=== PATIENT | male | born 1955 | race Caucasian/White ===

== ENCOUNTER 2016-10-23 06:01 | Day surgery (SDC) | payer BC ==
[~2016-10-23 06:01] MED LIST: Dextrose 5%-0.45% NaCl 1,000 ML IV SCH; Sodium Chloride 0.9% 10 ML Syringe FLUSH PRN
[2016-10-23] MEDS ORDERED: Midazolam 1 MG/ML 2 ML SDV ONE (06:11)
[2016-10-23] MEDS ORDERED: fentaNYL 100 MCG/2 ML SDV ONE (06:12)
[2016-10-23] MEDS ORDERED: fentaNYL 100 MCG/2 ML SDV IV ONE ×3 (06:50→15:38)
[2016-10-23] MEDS ORDERED: Midazolam 1 MG/ML 2 ML SDV IV ONE ×5 (06:51→15:38)
--- NOTE | 2016-10-23 10:27 | OR ---
DATE: 10/23/2016 PROCEDURE: Limited colonoscopy, narrow-band imaging, with magnification views and multiple pinch biopsies. INSTRUMENT USED: PCF-H180 AL Olympus video colonoscope. PREMEDICATIONS: Fentanyl 100 mcg intravenous, Versed 3 mg intravenous, nasal 2 L O2 cannula. The procedure was done under pulse oximetry, BP recording, and security monitor. INDICATION: The patient with recent progressive alteration in bowel habits, lower abdominal pain, as well as iron deficiency anemia. CT study suggestive of metastatic liver disease. Colonoscopic examination is done for detection of any polypoid lesions and removal. Endoscopic hemostasis therapy if needed. DESCRIPTION OF PROCEDURE: Initial rectal exam was unremarkable. Rigid anoscopy was normal. The colonoscope was passed with ease up to around 12 cm proximal to the anal verge, where a large circumferential malignant lesion was noted. NBI and magnification views were obtained. Photographs were taken. Numerous pinch biopsies were taken and sent for histopathology. Due to the stricture related to the large tumor, proximal areas could not be visualized. The tip of the scope could not be passed through. No vascular ectasia. No large isolated ulcerations seen. No evidence of diffuse inflammatory bowel disease in the form of friability, contact bleeding, or ulcerations. No bleeding was noted from any of the visualized areas at the completion of examination. IMPRESSION: Sigmoid colonic malignancy. The patient tolerated the procedure well. [facility] /[id number]
== END 2016-10-23 09:11 | disposition home or self-care (01) ==
LOC: DL.ENDO 06:01
PROVIDERS: ATTEND Internal Medicine Gastroenterology
DX: C18.7 Malignant neoplasm of sigmoid colon (principal); F17.210 Nicotine dependence, cigarettes, uncomplicated
CPT/HCPCS: 45380; J2250; J3010; J7042

== ENCOUNTER 2017-02-17 14:46 | Observation (INO) | payer BC ==
[2017-02-17] MEDS: Sodium Chloride 0.9% 10 ML Syringe FLUSH PRN ×2 (15:11→21:29)
--- NOTE | 2017-02-17 15:13 | EDM.PDOC ---
ED HPI GENERAL MEDICAL PROBLEM - General Chief Complaint: General Stated Complaint: [id number] FLUID IN LEGS AND FEET Time Seen by Provider: 02/17/17 15:05 Source of Information: Reports: Patient, RN, RN Notes Reviewed History Limitations: Reports: No Limitations - History of Present Illness INITIAL COMMENTS - FREE TEXT/NARRATIVE: Pt presents to the ER with c/o swelling in the legs and increased sob. He states he was diagnosed in October with colon cancer and has been taking treatments. He states he noticed the swelling in the legs on , but the sob has progressively gotten worse. Patient states he has been jaundiced "for a while". Onset: Gradual Location: Reports: Chest, Abdomen - Related Data Allergies Allergy/AdvReac Type Severity Reaction Status Date / Time No Known Allergies Allergy Verified 02/17/17 14:53 Home Meds: Home Meds Ibuprofen 2 tab PO Q6H PRN 10/22/16 [History] Capecitabine [Capecitabine] 1,800 mg PO ASDIRECTED 02/17/17 [History] Docusate Sodium [Colace] 100 mg PO DAILY PRN 02/17/17 [History] Loperamide HCl [Imodium A-D] 2 mg PO ASDIRECTED PRN 02/17/17 [History] Magnesium Oxide 400 mg PO BID 02/17/17 [History] Ondansetron HCl [Zofran] 8 mg PO ASDIRECTED PRN 02/17/17 [History] Prochlorperazine [Compazine] 10 mg PO ASDIRECTED PRN 02/17/17 [History] Zolpidem Tartrate [Zolpidem Tartrate] 10 mg PO BEDTIME 02/17/17 [History] Past Medical History HEENT History: Reports: None Cardiovascular History: Reports: None Respiratory History: Reports: None Gastrointestinal History: Reports: Chronic Constipation, Chronic Diarrhea, Other (See Below) Other Gastrointestinal History: lower abd pain Genitourinary History: Reports: None Musculoskeletal History: Reports: None Neurological History: Reports: None Psychiatric History: Reports: None Endocrine/Metabolic History: Reports: None Hematologic History: Reports: None Immunologic History: Reports: None Oncologic (Cancer) History: Reports: None Dermatologic History: Reports: None - Infectious Disease History Infectious Disease History: Reports: Other (See Below) Other Infectious Disease History: unknown - Past Surgical History Head Surgeries/Procedures: Reports: None HEENT Surgical History: Reports: None Cardiovascular Surgical History: Reports: None GI Surgical History: Reports: None Social & Family History - Family History Family Medical History: Noncontributory - Tobacco Use Smoking Status *Q: Never Smoker Years of Tobacco use: 25 Second Hand Smoke Exposure: Yes - Caffeine Use Caffeine Use: Reports: Coffee Caffeine Use Comment: 3-4 cups daily - Alcohol Use Days Per Week of Alcohol Use: 1 Number of Drinks Per Day: 4 Total Drinks Per Week: 4 - Recreational Drug Use Recreational Drug Use: No ED ROS GENERAL - Review of Systems Review Of Systems: ROS reveals no pertinent complaints other than HPI. ED EXAM, GENERAL - Physical Exam Exam: See Below Exam Limited By: No Limitations General Appearance: Alert, WD/WN, Mild Distress Eye Exam: Bilateral Eye: EOMI, Other (Scleral icterus) Ears: Normal External Exam, Hearing Grossly Normal Nose: Normal Inspection Throat/Mouth: Normal Inspection, Normal Voice, No Airway Compromise Head: Atraumatic, Normocephalic Neck: Normal Inspection Respiratory/Chest: Respiratory Distress, Decreased Breath Sounds Cardiovascular: Normal Peripheral Pulses, No JVD, Systolic Murmur, Gallop/S3. No: No Edema Peripheral Pulses: 1+: Dorsalis Pedis (L), Dorsalis Pedis (R), 2+: Radial (L), Radial (R) GI/Abdominal: Distended, Abnormal Bowel Sounds (hypoactive), Other (colostomy) (Male) Exam: Deferred Rectal (Males) Exam: Deferred Back Exam: Normal Inspection, Full Range of Motion Extremities: Normal Capillary Refill, Pedal Edema, Limited Range of Motion Neurological: Alert, Oriented, Normal Cognition, No Motor/Sensory Deficits Psychiatric: Normal Mood, Flat Affect Skin Exam: Warm, Dry, Intact, No Rash, Jaundice Lymphatic: No Adenopathy EKG INTERPRETATION EKG Date: 02/17/17 Time: 15:17 Rhythm: Other (sinus tach) Rate (Beats/Min): 102 [place]: RAD-Right [place] Deviation P-Wave: Present QRS: Normal ST-T: Normal QT: Normal Comparison: NA - No Prior EKG EKG Interpretation Comments: Sinus tach with right axis deviation, borderline inferior Q wave. Course - Vital Signs Last Recorded V/S: Last Vital Signs Temp 97.8 F 02/17/17 15:00 Pulse 98 02/17/17 16:14 Resp 24 H 02/17/17 16:14 BP 98/58 L 02/17/17 16:14 Pulse Ox 99 02/17/17 16:14 - Orders/Labs/Meds Orders: Active Orders 24 hr Category Date Time Status EKG Documentation Completion [RC] STAT Care 02/17/17 15:06 Active Peripheral IV Care [RC] . DIRECTED Care 02/17/17 15:04 Active Sodium Chloride 0.9% [Saline Flush] Med 02/17/17 15:03 Active 10 ml FLUSH ASDIRECTED PRN Peripheral IV Insertion Adult [OM.PC] Stat Oth 02/17/17 15:04 Ordered Medication Orders Sodium Chloride (Saline Flush) 10 ml FLUSH ASDIRECTED PRN PRN Reason: Keep Vein Open Last Admin: 02/17/17 15:11 Dose: 10 ml Labs: Laboratory Tests 02/17/17 02/17/17 02/17/17 Range/Units 15:09 15:09 15:09 WBC 8.9 (5.0-10.0) 10^3/uL RBC 3.51 L (4.6-6.2) 10^6/uL Hgb 10.5 L (14.0-18.0) g/dL Hct 30.5 L (40.0-54.0) % MCV 86.9 (80-100) fL MCH 29.9 (27.0-34.0) pg MCHC 34.4 (33.0-35.0) g/dL Plt Count 407 (150-450) 10^3/uL Neut % (Auto) 73.4 (42.2-75.2) % Lymph % (Auto) 13.8 L (20.5-50.1) % Bremer % (Auto) 12.4 H (2-8) % Eos % (Auto) 0.3 L (1.0-3.0) % Baso % (Auto) 0.1 (0.0-1.0) % Add Manual Diff Yes Neutrophils % (Manual) 80 H (42-75) % Band Neutrophils % 1 % Lymphocytes % (Manual) 13 L (20-50) % Monocytes % (Manual) 5 (2-8) % Eosinophils % (Manual) 1 (1-3) % Target Cells Few Sodium 134 L (135-145) mmol/L Potassium 4.5 (3.6-5.0) mmol/L Chloride 103 (101-111) mmol/L Carbon Dioxide 17.0 L (21.0-31.0) mmol/L Anion Gap 18.5 BUN 38 H (7-18) mg/dL Creatinine 1.5 H (0.6-1.3) mg/dL Est Cr Clr Drug Dosing 56.48 mL/min Estimated GFR (MDRD) 48 BUN/Creatinine Ratio 25.33 Glucose 119 H (74-105) mg/dL Calcium 9.2 (8.4-10.2) mg/dl Total Bilirubin 10.4 H (0.2-1.0) mg/dL AST 164 H (10-42) IU/L ALT 48 (10-60) IU/L Alkaline Phosphatase 281 H (42-121) IU/L Lactate Dehydrogenase 1020 H (91-180) IU/L B-Natriuretic Peptide 139 H (0-100) pg/ml Total Protein 7.1 (6.7-8.2) g/dl Albumin 2.4 L (3.2-5.5) g/dl Globulin 4.7 Albumin/Globulin Ratio 0.51 Meds: Medications Generic Name Dose Route Start Last Admin Trade Name Freq PRN Reason Stop Dose Admin Sodium Chloride 10 ml 02/17/17 15:03 02/17/17 15:11 Saline Flush FLUSH 10 ml ASDIRECTED PRN Administration Keep Vein Open Discontinued Medications Generic Name Dose Route Start Last Admin Trade Name Freq PRN Reason Stop Dose Admin Furosemide 40 mg 02/17/17 16:15 Lasix IVPUSH 02/17/17 16:16 NOW ONE - Radiology Interpretation Free Text/Narrative:: Chest xray: See rad report - Re-Assessments/Exams Free Text/Narrative Re-Assessment/Exam: 02/17/17 16:19 Patient accepted at by Dr. Barlow, but patient is unable to be transported due to weather. Discussed the case with Dr. Davila, and the patient will be admitted to the medical floor at [place], [place] until the patient can be transferred, if still necessary. Departure - Departure Time of Disposition: 16:21 Disposition: Admitted As Inpatient 68 Condition: Poor, Serious Clinical Impression: SOB (shortness of breath), Jaundice Ascites Qualifiers: Ascites type: malignant Qualified Code(s): R18.0 - Malignant ascites Hepatic cancer Qualifiers: Liver malignancy type: unspecified liver malignancy Qualified Code(s): C22.9 - Malignant neoplasm of liver, not specified as primary or secondary Colon cancer Qualifiers: Colon location: unspecified part of colon Qualified Code(s): C18.9 - Malignant neoplasm of colon, unspecified - Discharge Information Forms: ED Department Discharge - My Orders Last 24 Hours: My Active Orders 02/17/17 15:03 Sodium Chloride 0.9% [Saline Flush] 10 ml FLUSH ASDIRECTED PRN 02/17/17 15:04 Peripheral IV Care [RC] . DIRECTED Peripheral IV Insertion Adult [OM.PC] Stat 02/17/17 15:06 EKG Documentation Completion [RC] STAT - Assessment/Plan Last 24 Hours: My Active Orders 02/17/17 15:03 Sodium Chloride 0.9% [Saline Flush] 10 ml FLUSH ASDIRECTED PRN 02/17/17 15:04 Peripheral IV Care [RC] . DIRECTED Peripheral IV Insertion Adult [OM.PC] Stat 02/17/17 15:06 EKG Documentation Completion [RC] STAT
--- NOTE | 2017-02-17 16:07 | CR ---
Clinical history: 61-year-old male chest pain. Interpretation: No acute cardiopulmonary abnormality. Normal cardiac silhouette without cephalization of vascular flow, signs of alveolar edema or dependen t pleural effusion. No lung mass, hilar lymphadenopathy or focal lobar pneumonia. More thorax unremarkable. No atelectasis/collapse. No pneumothorax.
[2017-02-17] MEDS ORDERED: Furosemide 40 MG/4 ML VIAL IVPUSH ONE (16:15)
[2017-02-17] MEDS ORDERED: Zolpidem 5 MG Tab PO PRN (16:59)
[2017-02-17] MEDS ORDERED: Ondansetron 4 MG/2 ML SDV IVPUSH PRN (17:01)
[2017-02-17] MEDS ORDERED: Ibuprofen 400 MG Tab PO PRN (17:01)
[2017-02-17] MEDS ORDERED: Ondansetron 4 MG Tab.DIS PO PRN (17:01)
[2017-02-17] MEDS ORDERED: Sodium Chloride 0.9% 10 ML Syringe FLUSH PRN (17:01)
--- NOTE | 2017-02-17 17:27 | PCM.HP ---
H&P History of Present Illness - General Date of Service: 02/17/17 Admit Problem/Dx: Admission Diagnosis/Problem Admission Diagnosis/Problem Weakness Source of Information: Patient - History of Present Illness Initial Comments - Free Text/Narative: The patient is a 61-year-old gentleman with a colon adenocarcinoma with known liver metastases. The patient was treated with bowel resection, chemotherapy. He came to the emergency room with complaints of increasing lower extremity edema and enlarging abdomen, associated weakness. Shortness of breath is worse. He has more jaundiced than before. - Related Data Allergies/Adverse Reactions: Allergies Allergy/AdvReac Type Severity Reaction Status Date / Time No Known Allergies Allergy Verified 02/17/17 14:53 Home Medications: Home Meds Ibuprofen 2 tab PO Q6H PRN 10/22/16 [History] Capecitabine [Capecitabine] 1,800 mg PO ASDIRECTED 02/17/17 [History] Docusate Sodium [Colace] 100 mg PO DAILY PRN 02/17/17 [History] Loperamide HCl [Imodium A-D] 2 mg PO ASDIRECTED PRN 02/17/17 [History] Magnesium Oxide 400 mg PO BID 02/17/17 [History] Ondansetron HCl [Zofran] 8 mg PO ASDIRECTED PRN 02/17/17 [History] Prochlorperazine [Compazine] 10 mg PO ASDIRECTED PRN 02/17/17 [History] Zolpidem Tartrate [Zolpidem Tartrate] 10 mg PO BEDTIME 02/17/17 [History] Past Medical History HEENT History: Reports: None Cardiovascular History: Reports: None Respiratory History: Reports: None Gastrointestinal History: Reports: Chronic Constipation, Chronic Diarrhea, Other (See Below) Other Gastrointestinal History: lower abd pain Genitourinary History: Reports: None Other Genitourinary History: erectile dysfunction Musculoskeletal History: Reports: None Neurological History: Reports: None Psychiatric History: Reports: None Endocrine/Metabolic History: Reports: None Hematologic History: Reports: None Immunologic History: Reports: None Oncologic (Cancer) History: Reports: Colon, Liver Dermatologic History: Reports: None - Infectious Disease History Infectious Disease History: Reports: Other (See Below) Other Infectious Disease History: unknown - Past Surgical History Head Surgeries/Procedures: Reports: None HEENT Surgical History: Reports: None Cardiovascular Surgical History: Reports: None GI Surgical History: Reports: None Social & Family History - Family History Family Medical History: Noncontributory - Tobacco Use Smoking Status *Q: Former Smoker Years of Tobacco use: 3 Packs/Tins Daily: 0.5 Used Tobacco, but Quit: Yes Month Tobacco Last Used: september Second Hand Smoke Exposure: Yes - Caffeine Use Caffeine Use: Reports: Coffee Caffeine Use Comment: 3-4 cups daily - Alcohol Use Days Per Week of Alcohol Use: 1 Number of Drinks Per Day: 4 Total Drinks Per Week: 4 - Recreational Drug Use Recreational Drug Use: No H&P Review of Systems - Review of Systems: Review Of Systems: See Below General: Reports: Malaise, Weakness, Fatigue. Denies: Fever Pulmonary: Reports: Shortness of Breath Cardiovascular: Reports: Edema. Denies: Chest Pain Gastrointestinal: Reports: Distension. Denies: Abdominal Pain Psychiatric: Denies: Confusion Exam - Exam Exam: See Below - Vital Signs Vital Signs: Last Vital Signs Temp 36.4 C 02/17/17 16:50 Pulse 99 02/17/17 16:50 Resp 20 02/17/17 16:50 BP 135/74 02/17/17 16:50 Pulse Ox 100 02/17/17 16:50 Weight: 94.982 kg - Exam General: Alert, Oriented Neck: Supple Lungs: Normal Respiratory Effort, Decreased Breath Sounds Cardiovascular: Regular Rate, Regular Rhythm GI/Abdominal Exam: Normal Bowel Sounds, Distended (Mildly). No: Rigid Extremities: Pedal Edema (2+ bilateral) - Patient Data Result Diagrams: 02/17/17 15:09 02/17/17 15:09 Imaging Impressions Last 24 hrs: Chest x-ray per my reading shows no CHF, no effusion. *Q Meaningful Use (ADM) - VTE *Q VTE Criteria *Q: - Stroke *Q Stroke Criteria *Q: - AMI *Q AMI Criteria *Q: Problem List Initiated/Reviewed/Updated: Yes Orders Last 24hrs: Active Orders 24 hr Category Date Time Status Patient Status [ADT] Routine ADT 02/17/17 17:01 Ordered Antiembolic Devices [RC] PER UNIT ROUTINE Care 02/17/17 17:03 Ordered Oxygen Therapy [RC] PRN Care 02/17/17 17:01 Ordered Up With Assistance [RC] ASDIRECTED Care 02/17/17 17:01 Ordered Vital Signs [RC] Q4H Care 02/17/17 17:01 Ordered Regular Diet [DIET] Diet 02/17/17 Dinner Ordered BASIC METABOLIC PANEL,BMP [CHEM] AM Lab 02/18/17 05:11 Ordered CBC W/O DIFF,HEMOGRAM [HEME] AM Lab 02/18/17 05:11 Ordered HEPATIC FUNCTION PANEL,HFP [CHEM] AM Lab 02/18/17 05:11 Ordered Furosemide [Lasix] Med 02/18/17 09:00 Ordered 20 mg PO DAILY Heparin Sodium Med 02/17/17 22:00 Ordered 5,000 units SUBCUT Q8HR Magnesium Oxide [Magnesium Oxide] Med 02/17/17 21:00 Ordered 400 mg PO BID Ondansetron [Zofran ODT] Med 02/17/17 17:01 Ordered 4 mg PO Q6H PRN Ondansetron [Zofran] Med 02/17/17 17:01 Ordered 4 mg IVPUSH Q6H PRN Zolpidem Tartrate Med 02/17/17 16:59 Ordered 10 mg PO BEDTIME PRN oxyCODONE Med 02/17/17 17:01 Ordered 5 mg PO Q4H PRN Antiembolic Hose [OM.PC] Per Unit Routine Oth 02/17/17 17:02 Ordered Saline Lock Insert [OM.PC] Routine Oth 02/17/17 17:01 Ordered Resuscitation Status Routine Resus Stat 02/17/17 17:17 Ordered Medication Orders Furosemide (Lasix) 20 mg PO DAILY G[facility] Heparin Sodium (Porcine) (Heparin Sodium) 5,000 units SUBCUT Q8HR [facility] Non-Formulary Medication (Magnesium Oxide [Magnesium Oxide]) 400 mg PO BID G[facility] Ondansetron HCl (Zofran Odt) 4 mg PO Q6H PRN PRN Reason: nausea, able to take PO Ondansetron HCl (Zofran) 4 mg IVPUSH Q6H PRN PRN Reason: Nausea/Vomiting Oxycodone HCl (Oxycodone) 5 mg PO Q4H PRN PRN Reason: Pain (moderate 4-6) Sodium Chloride (Saline Flush) 10 ml FLUSH ASDIRECTED PRN PRN Reason: Keep Vein Open Last Admin: 02/17/17 15:11 Dose: 10 ml Zolpidem Tartrate (Ambien) 10 mg PO BEDTIME PRN PRN Reason: Sleep Assessment/Plan Comment:: Metastatic colon cancer with extensive liver metastasis. Status post colostomy for high-grade obstruction Has been getting CAPOx by dr. Drake Plan to transfer to [place] when Road conditions make it possible. To be further evaluated and treated. Presented with weakness Noted to have extensive lower extremity edema, ascites. The patients bilirubin is increased from 7.3 to 10.4 Creatinine is also elevated from 1.2 to 1.5 The patient already received IV Lasix in the emergency room. I will continue oral Lasix. We will have to follow renal function test with gentle diuresis. Further differential diagnosis includes pulmonary embolism, DVT. This is less likely since both legs are equally swollen. Acute on chronic Anemia With history of iron deficiency received supplement in the past now no more tx. Was needed Acute worsening likely due to chemotherapy Will recheck hemoglobin in the morning DVT prophylaxis will be with subcutaneous heparin and Brenton stocking
[2017-02-17] MEDS: oxyCODONE 5 MG Tab PO PRN (20:19)
[2017-02-17] MEDS: Heparin Sodium 5,000 Units/ML Vial SUBCUT SCH (21:31)
[2017-02-18] MEDS: oxyCODONE 5 MG Tab PO PRN ×3 (00:27→13:48)
[2017-02-18] MEDS: Heparin Sodium 5,000 Units/ML Vial SUBCUT SCH ×2 (06:04→14:02)
[2017-02-18] MEDS ORDERED: Furosemide 20 MG Tab PO SCH (09:00)
--- NOTE | 2017-02-18 09:49 | PCM.DCSUM1 ---
Discharge Summary - Hospital Course Free Text/Narrative:: The patient is a 61-year-old with a history of colon cancer. Presented with weakness, icterus. Metastatic colon cancer with extensive liver metastasis. Status post colostomy for high-grade obstruction Has been getting CAPOx by dr. Drake Plan was to transfer to [place] to be further evaluated and treated but due to her throat conditions the transfer was delayed. Presented with weakness Noted to have extensive lower extremity edema, ascites. The patients bilirubin is increased from 7.3 to 10.4 Creatinine is also elevated from 1.2 to 1.5 The patient already received IV Lasix in the emergency room. I have continued oral Lasix. Further differential diagnosis includes pulmonary embolism, DVT. Ultrasound was not immediately available, did not want to pursue IV contrast studies with the renal failure. This is less likely since both legs are equally swollen. Acute on chronic Anemia With history of iron deficiency received supplement in the past now no more tx. Was needed Acute worsening likely due to chemotherapy DVT prophylaxis was with subcutaneous heparin and Brenotn stocking - Discharge Data Discharge Date: 02/18/17 Discharge Disposition: DC/Tfer to Acute Hospital 02 Condition: Good - Patient Instructions Diet: Regular Diet as Tolerated Activity: As Tolerated - Discharge Plan Home Medications: Home Meds Capecitabine 1,800 mg PO BID 02/17/17 [History] Docusate Sodium [Colace] 100 mg PO DAILY PRN 02/17/17 [History] Loperamide HCl [Imodium A-D] 2 mg PO ASDIRECTED PRN 02/17/17 [History] Magnesium Oxide 400 mg PO BID 02/17/17 [History] Ondansetron HCl [Zofran] 8 mg PO ASDIRECTED PRN 02/17/17 [History] Prochlorperazine [Compazine] 10 mg PO ASDIRECTED PRN 02/17/17 [History] Zolpidem Tartrate 10 mg PO BEDTIME 02/17/17 [History] Furosemide [Lasix] 20 mg PO DAILY tablet 02/18/17 [Rx] Ondansetron [Zofran ODT] 4 mg PO Q6H PRN tab.dis 02/18/17 [Rx] Ondansetron [Zofran] 4 mg IVPUSH Q6H PRN vial 02/18/17 [Rx] - Discharge Summary/Plan Comment DC Time >30 min.: Yes (Arranging transfer to [place]) - General Info Date of Service: 02/18/17 Admission Dx/Problem (Free Text: Admission Diagnosis/Problem Admission Diagnosis/Problem Weakness, icterus, leg edema and abdominal distention - Review of Systems General: Reports: Weakness, Fatigue Pulmonary: Reports: Shortness of Breath Cardiovascular: Reports: Edema Gastrointestinal: Denies: Abdominal Pain Neurological: Denies: Confusion - Patient Data Vitals - Most Recent: Last Vital Signs Temp 37.1 C 02/18/17 07:57 Pulse 82 02/18/17 07:57 Resp 20 02/18/17 07:57 BP 119/67 02/18/17 07:57 Pulse Ox 98 02/18/17 07:57 Weight - Most Recent: 94.982 kg I&O - Last 24 hours: Intake & Output 02/17/17 02/18/17 02/18/17 22:59 06:59 14:59 Intake Total 700 Output Total 550 Balance 150 Lab Results - Last 24 hrs: Laboratory Results - last 24 hr 02/18/17 02/18/17 Range/Units 06:19 06:19 WBC 10.0 (5.0-10.0) 10^3/uL RBC 3.30 L (4.6-6.2) 10^6/uL Hgb 10.0 L (14.0-18.0) g/dL Hct 28.2 L (40.0-54.0) % MCV 85.5 (80-100) fL MCH 30.3 (27.0-34.0) pg MCHC 35.5 H (33.0-35.0) g/dL Plt Count 384 (150-450) 10^3/uL Sodium 134 L (135-145) mmol/L Potassium 4.5 (3.6-5.0) mmol/L Chloride 100 L (101-111) mmol/L Carbon Dioxide 17.0 L (21.0-31.0) mmol/L Anion Gap 21.5 BUN 38 H (7-18) mg/dL Creatinine 1.4 H (0.6-1.3) mg/dL Est Cr Clr Drug Dosing 60.51 mL/min Estimated GFR (MDRD) 52 Glucose 94 (74-105) mg/dL Calcium 8.8 (8.4-10.2) mg/dl Total Bilirubin 10.2 H (0.2-1.0) mg/dL Direct Bilirubin 6.4 H (0.0-0.2) mg/dL Indirect Bilirubin 3.8 AST 147 H (10-42) IU/L ALT 44 (10-60) IU/L Alkaline Phosphatase 292 H (42-121) IU/L Total Protein 6.7 (6.7-8.2) g/dl Albumin 2.2 L (3.2-5.5) g/dl Globulin 4.5 Albumin/Globulin Ratio 0.49 Med Orders - Current: Current Medications Furosemide (Lasix) 20 mg PO DAILY [facility] Last Admin: 02/18/17 08:43 Dose: 20 mg Heparin Sodium (Porcine) (Heparin Sodium) 5,000 units SUBCUT Q8HR [facility] Last Admin: 02/18/17 06:04 Dose: Not Given Magnesium Oxide (Magnesium Oxide) 250 mg PO BID [facility] Last Admin: 02/18/17 08:43 Dose: 250 mg Ondansetron HCl (Zofran Odt) 4 mg PO Q6H PRN PRN Reason: nausea, able to take PO Ondansetron HCl (Zofran) 4 mg IVPUSH Q6H PRN PRN Reason: Nausea/Vomiting Oxycodone HCl (Oxycodone) 5 mg PO Q4H PRN PRN Reason: Pain (moderate 4-6) Last Admin: 02/18/17 07:20 Dose: 5 mg Sodium Chloride (Saline Flush) 10 ml FLUSH ASDIRECTED PRN PRN Reason: Keep Vein Open Last Admin: 02/17/17 21:29 Dose: 10 ml Zolpidem Tartrate (Ambien) 10 mg PO BEDTIME PRN PRN Reason: Sleep Discontinued Medications Furosemide (Lasix) 40 mg IVPUSH NOW ONE Stop: 02/17/17 16:16 Last Admin: 02/17/17 16:23 Dose: 40 mg Ibuprofen (Motrin) 400 mg PO Q6H PRN PRN Reason: Pain (mild 1-3) Sodium Chloride (Saline Flush) 10 ml FLUSH ASDIRECTED PRN PRN Reason: Keep Vein Open - Exam General: Reports: Alert, Oriented Lungs: Reports: Normal Respiratory Effort, Decreased Breath Sounds Cardiovascular: Reports: Regular Rate, Regular Rhythm GI/Abdominal Exam: Normal Bowel Sounds, Soft, Distended Extremities: Pedal Edema *Q Meaningful Use (DIS) - VTE *Q VTE Criteria *Q: - Stroke *Q Stroke Criteria *Q: - AMI *Q AMI Criteria *Q:
--- NOTE | 2017-02-19 11:47 | EKG ---
02/17/2017- JAX CONRAD - FINDINGS: EKG, per my reading, shows sinus tachycardia at the rate of 100. MOD /[id number]
== END 2017-02-18 14:01 ==
LOC: DL.ED 14:46 → UNDOADMOB 16:44 → DL.MS 16:44
PROVIDERS: ADMIT Internal Medicine; ATTEND Internal Medicine
DX: C18.9 Malignant neoplasm of colon, unspecified (principal); C78.7 Secondary malignant neoplasm of liver and intrahepatic bile duct; D64.9 Anemia, unspecified; Z93.3 Colostomy status; K59.09 Other constipation; K52.9 Noninfective gastroenteritis and colitis, unspecified; Z87.891 Personal history of nicotine dependence; Z79.899 Other long term (current) drug therapy
CPT/HCPCS: 36415; 71010; 80048; 80053; 80076; 83615; 83880; 85025; 85027; 93005; 96374; 99285; A9270; J1940; J7050; G0378